=== PATIENT | female | born 1965 | race American Indian/Alaskan Native ===

== ENCOUNTER 2017-02-01 08:41 | Day surgery (SDC) | payer OTHER ==
[2017-02-01 10:01] LABS: Hematocrit 37.3 % (30.3-42.9); Hemoglobin 12.2 gm/dl (10.1-14.3)
--- NOTE | 2017-02-01 10:18 | Anesthesia Day of Surgery ---
Anesthesia Day of Surgery - Day of Surgery Patient Examined: Yes Patient H&P Reviewed: Yes Patient is NPO: Yes
--- NOTE | 2017-02-01 10:18 | Anesthesia Consultation ---
Anesthesia Consult and Med Hx Date of service: 02/01/17 - Airway Anesthetic Teeth Evaluation: Good ROM Head & Neck: Adequate Mental/Hyoid Distance: Adequate Mallampati Class: Class II Intubation Access Assessment: Good - Pulmonary Exam CTA: Yes - Cardiac Exam Cardiac Exam: No Murmur - Pre-Operative Health Status ASA Pre-Surgery Classification: ASA2 Proposed Anesthetic Plan: General - Pulmonary Hx Smoking: No Hx Asthma: No Hx Sleep Apnea: No (KATHRYN PRE SCREEN NEGATIVE) - Cardiovascular System Hx Hypertension: No Hx Coronary Artery Disease: No Hx Heart Attack/AMI: No Hx Angina: No Hx Cardia Arrhythmia: No Hx Heart Murmur: No - Central Nervous System Hx Seizures: No CVA: No Hx Psychiatric Problems: Yes - Gastrointestinal Hx Gastroesophageal Reflux Disease: No - Endocrine Hx Renal Disease: No Hx Liver Disease: No Hx Non-Insulin Dependent Diabetes: No Hx Thyroid Disease: No - Other Systems Hx Alcohol Use: No Hx Substance Use: No Hx Cancer: Yes
[2017-02-01] MEDS ORDERED: PEPCID PO NR (11:00)
[2017-02-01] MEDS ORDERED: VERSED IV NR (11:00)
[2017-02-01] MEDS ORDERED: LACTATED RINGERS 1,000 ML IV SCH (11:00)
[2017-02-01] MEDS ORDERED: NEOSTIGMINE ONE (11:31)
[2017-02-01] MEDS ORDERED: XYLOCAINE MPF 2% ONE (11:31)
[2017-02-01] MEDS ORDERED: ROBINUL ONE ×2 (11:31)
[2017-02-01] MEDS ORDERED: ZOFRAN ONE ×2 (11:31→14:17)
[2017-02-01] MEDS ORDERED: DECADRON ONE ×2 (11:31→14:17)
[2017-02-01] MEDS ORDERED: DIPRIVAN 10 MG/ML IV ONE (11:32)
[2017-02-01] MEDS ORDERED: SUBLIMAZE ONE (11:32)
[2017-02-01] MEDS ORDERED: DILAUDID ONE (11:33)
[2017-02-01] MEDS ORDERED: ANCEF/STERILE WATER 2 GM/20 ML IV NR (12:00)
[2017-02-01] MEDS ORDERED: BACITRACIN ONE ×2 (12:10→13:25)
[2017-02-01] MEDS ORDERED: MARCAINE 0.25% INFILTRATI ONE (12:10)
[2017-02-01] MEDS ORDERED: LACTATED RINGERS 1,000 ML ONE (13:25)
[2017-02-01] MEDS ORDERED: BACITRACIN IR ONE (13:39)
[2017-02-01] MEDS ORDERED: BREVIBLOC IV ONE (13:59)
[2017-02-01 16:04] VITALS: BP 138/86
[2017-02-01] MEDS: DILAUDID IV PRN ×2 (16:08→16:20)
[2017-02-01] MEDS ORDERED: PERCOCET 5/325 PO PRN (16:26)
--- NOTE | 2017-02-01 19:26 | Operative Report ---
PREOPERATIVE DIAGNOSES: 1. History of breast cancer. 2. Left acquired breast deformity. POSTOPERATIVE DIAGNOSES: 1. History of breast cancer. 2. Left acquired breast deformity. PROCEDURE: 1. Capsulectomy. 2. Revision of left breast reconstruction. 3. Placement of autologous dermal matrix. SURGEON: Marky Baxter MD. FILM REPLACEMENT ORDERER: Shaun Cerda CSA. DESCRIPTION OF PROCEDURE: The patient was brought to the operating room and placed on the table in supine position. Following administration of general anesthesia, bilateral breasts were prepped with Betadine solution, draped in usual sterile manner. A #10 blade scalpel was used to incise previous surgical scar overlying the left breast, deepened through subcutaneous fat and pectoralis major muscle down to the implant using electrocautery. Implant was removed, placed in bacitracin solution. Inferior pole of capsulectomy was performed from the point of desired placement of the IMF down to where the IMF was located. ADM was sutured along the location of the new inframammary fold using interrupted 2-0 PDS sutures. A 10 mm MACK drain was placed along the fold anterior to the ADM and along the inframammary fold and the implant was replaced with closure of the muscle using interrupted 2-0 PDS sutures, interrupted 2-0 Monocryl sutures and running subcuticular 2-0 Monocryl sutures followed by Mastisol, Steri-Strips and sterile dressing. The patient tolerated the procedure well and returned to recovery room in stable condition. JOB# [id number] FTW/ABELARDO HINOJOSA
== END 2017-02-01 17:10 | disposition home or self-care (01) ==
LOC: OR 08:41
PROVIDERS: ATTEND Plastic Surgery
PROC: 0HWU0JZ Revision of Synthetic Substitute in Left Breast, Open Approach (ICD-10-PCS; principal; 2017-02-01)
DX: N65.0 Deformity of reconstructed breast (principal); G43.909 Migraine, unspecified, not intractable, without status migrainosus; F32.9 Major depressive disorder, single episode, unspecified; F41.9 Anxiety disorder, unspecified; Z90.710 Acquired absence of both cervix and uterus; Z85.3 Personal history of malignant neoplasm of breast; Z85.038 Personal history of other malignant neoplasm of large intestine; Z98.890 Other specified postprocedural states; Z90.49 Acquired absence of other specified parts of digestive tract; Z88.6 Allergy status to analgesic agent; Z88.8 Allergy status to other drugs, medicaments and biological substances
CPT/HCPCS: 15777; 19380; 36415; 85014; 85018; 88305; J0690; J1100; J1170; J2250; J2405; J2704; J3010; J7120; Q4128; 88307; J2710